=== PATIENT | female | born 1940 | race Caucasian/White ===

== ENCOUNTER 2017-04-12 06:01 | Inpatient (IN) | payer MEDICARE, OTHER ==
[~2017-04-12] VITALS: Ht 170.2 cm; Wt 55.3 kg
[~2017-04-12 06:01] MED LIST: ALEN70TA45 PO; AMLO1CAP2 PO; AZIT250T6 PO; BLOO-140 IN; CLON0.1T PO; COLC0.6T69 PO; DULO30CA51 PO; FENO200C PO; FURO40TA5 PO; GABA-534 PO; HYDR-4076 PO; IBUP-1482 PO; INSU100V7 SQ; LINA290C PO; LORA1TAB PO; METO-306 PO; OLME1TAB2 PO; OMEP40CA37 PO; OSEL75CA PO; SITA1TAB6 PO; [UNRECOGNIZED DRUG - CODE] PO
--- NOTE | 2017-04-12 06:10 | NUR ---
abhishekra fr home for c/o upper abd pain w/ N/V x today, constipation x 3 days, hx metastic bone Ca. AOX4, afebrile w/ resp even & unlabored, tachycardic w/ report continued abd pain, nausea, no active vomiting, placed on continuous pulse-ox w/ cardiac monitoring. pt son at bedside. Dr. Brooks at bedside for further eval.
--- NOTE | 2017-04-12 06:18 | NUR ---
CXR at bedside.
--- NOTE | 2017-04-12 06:20 | NUR ---
Labs drawn w/ BCx2 and sent. EKG at bedside.
[2017-04-12 06:33] LABS: BASOPHILS % (AUTO) 0.2 % (0.0-2.0); EOSINOPHILS # (AUTO) 0.1 /CMM (0.0-0.7); EOSINOPHILS % (AUTO) 0.6 % (0.0-6.0); HEMATOCRIT 29 % (33-45); HEMOGLOBIN 9.7 g/dL (11.5-14.8); LYMPHOCYTES # (AUTO) 0.6 /CMM (0.8-4.8); LYMPHOCYTES % (AUTO) 7.1 % (20.0-44.0); MEAN CORPUSCULAR HEMOGLOBIN 29 PG (26.0-33.0); MEAN CORPUSCULAR HGB CONC 34 g/dl (31.0-36.0); MEAN CORPUSCULAR VOLUME 86 fL (82-100); MONOCYTES # (AUTO) 0.4 /CMM (0.1-1.30); NEUTROPHILS # (AUTO) 7.6 /CMM (1.8-8.9); NEUTROPHILS % (AUTO) 87.1 % (43.0-81.0); PLATELET COUNT (AUTO) 323 /CMM (150-450); RDW COEFFICIENT OF VARIATION 22.4 (11.5-15.0); RED BLOOD CELL COUNT(AUTO) 3.32 MIL/uL (4.0-5.2); WHITE BLOOD COUNT (AUTO) 8.7 K/uL (4.3-11.0)
[2017-04-12] MEDS ORDERED: MORPHINE SULFATE INJ 10 MG/ML DISP.SYRIN ONE (06:47)
[2017-04-12] MEDS ORDERED: ONDANSETRON HCL/PF 4 MG/2 ML VIAL ONE (06:47)
[2017-04-12 06:50] LABS: ALANINE AMINOTRANSFERASE 13 U/L (12-78); ALBUMIN 2.6 g/dL (3.4-5.0); ALKALINE PHOSPHATASE 212 U/L (46-116); ASPARTATE AMINOTRANSFERASE 25 U/L (15-37); BILIRUBIN,DIRECT 0.1 mg/dL (0.0-0.2); BILIRUBIN,TOTAL 0.3 mg/dL (0.2-1.0); CALCIUM, SERUM 9.2 mg/dL (8.5-10.1); CARBON DIOXIDE 20 mmol/L (21-32); CHLORIDE 104 mmol/L (98-107); CREATININE 0.7 mg/dL (0.6-1.3); GLUCOSE 158 mg/dL (74-106); POTASSIUM 3.3 mmol/L (3.5-5.1); SODIUM SERUM 136 mmol/L (136-145); TOTAL PROTEIN, SERUM 6.7 g/dL (6.4-8.2); UREA NITROGEN, BLOOD 13 mg/dL (7-18)
[2017-04-12 06:54] LABS: TROPONIN I 0.066 ng/mL (0.00-0.056)
[2017-04-12] MEDS ORDERED: ONDANSETRON HCL/PF 4 MG/2 ML VIAL IVP ONE (07:00)
[2017-04-12] MEDS ORDERED: MORPHINE SULFATE INJ 2 MG/ML DISP.SYRIN IV ONE (07:00)
[2017-04-12] MEDS ORDERED: IV NS 0.9% 500 ML BAG IV ONE ×2 (07:00→10:30)
[2017-04-12 07:01] LABS: INR 1.01 (0.87-1.13); PROTHROMBIN TIME 10.5 SECS (9.5-12.7)
--- NOTE | 2017-04-12 07:26 | NUR ---
PT ON BED, AWAKE, VSS
[2017-04-12] MEDS ORDERED: CT SWABBABLE VALVE TRANS SET 1 EA INFUS.SET MC ONE (07:28)
[2017-04-12] MEDS ORDERED: IV NS 0.9% 250 ML IV ONE (07:28)
[2017-04-12] MEDS ORDERED: IOHEXOL-300 100 ML VIAL IV ONE (07:28)
--- NOTE | 2017-04-12 07:33 | NUR ---
PATIENT WAS TAKEN TO CT
--- NOTE | 2017-04-12 08:07 | NUR ---
URINE SAMPLE SENT TO LAB
[2017-04-12 08:44] LABS: APPEARANCE,URINE CLEAR (CLEAR); BILIRUBIN,URINE 1+ (NEGATIVE); BLOOD, URINE NEGATIVE Ery/uL (NEGATIVE); COLOR,URINE YELLOW (YELLOW); KETONES,URINE TRACE (NEGATIVE); LEUKOCYTE ESTERASE ,URINE 1+ (NEGATIVE); NITRITE, URINE NEGATIVE (NEGATIVE); PH,URINE 5.5 (5.0-8.0); PROTEIN,URINE 2+ mg/dl (NEGATIVE); UGLUCOSE NEGATIVE (NEGATIVE); UROBILINOGEN,URINE 0.2 EU/dL (0.2)
[2017-04-12 08:53] LABS: RBC,URINE 0-2 /HPF (0-2)
[2017-04-12 08:54] LABS: BACTERIA,URINE Few /HPF (None Seen); MUCUS,URINE Few /LPF (None Seen); URINE AMORPHOUS URATE Few /HPF (None Seen)
--- NOTE | 2017-04-12 10:45 | NUR ---
REPORT GIVEN TO KEEGAN DUFFY FOR DAVID TELE [phone]
--- NOTE | 2017-04-12 11:30 | NUR ---
CORPORATE QUALITY ASSURANCE MANAGER ADMISSION PATIENT RECEIVED FROM E.R. DEPARTMENT VIA [facility], PATIENT ABLE TO AMBULATE FROM [facility] TO BED, WITH STANDBY ASSIST, ACCOMPANIED BY SON, MEDICAL HX PROVIDED BY SON, PATIENT IS ALERT AND ORIENTED X3, FEELS LETHARGIC AND COMPLAINING OF ABDOMINAL PAIN. NO SOB NOTED. DR. MEIER PAGED FOR PAIN MEDICATIONS. NEEDS ATTENDED AND MET, CALL LIGHT WITHIN REACH, WILL CONTINUE TO MONITOR.
[2017-04-12] MEDS ORDERED: VALS160T2 PO (11:41)
[2017-04-12] MEDS ORDERED: FURO20TA4 PO (11:41)
[2017-04-12] MEDS ORDERED: MEGE400O PO (11:41)
[2017-04-12] MEDS ORDERED: PROC10TA PO (11:41)
[2017-04-12] MEDS ORDERED: ROSU20TA PO (11:41)
[2017-04-12] MEDS ORDERED: POTA-10 PO (11:41)
[2017-04-12] MEDS ORDERED: AMLO10TA2 PO (11:41)
[2017-04-12] MEDS ORDERED: CLON0.2T PO (11:41)
[2017-04-12] MEDS ORDERED: HYDR-4076 PO (11:41)
[2017-04-12] MEDS ORDERED: SERT50TA PO (11:41)
[2017-04-12] MEDS ORDERED: ONDA-26 PO (11:41)
[2017-04-12] MEDS ORDERED: CHOL500052 PO (11:41)
[2017-04-12] MEDS ORDERED: CLOT10TR MM (11:41)
[2017-04-12] MEDS ORDERED: ASPI-991 PO (11:41)
[2017-04-12] MEDS ORDERED: TICA90TA PO (11:42)
[2017-04-12] MEDS ORDERED: DICL100G3 TP (11:42)
[2017-04-12] MEDS ORDERED: BISA10SU8 RC (11:42)
[2017-04-12] MEDS ORDERED: ZOLP5TAB7 PO (11:42)
[2017-04-12] MEDS ORDERED: CARV12.52 PO (11:42)
[2017-04-12] MEDS ORDERED: IV NS 0.9% 1,000 ML IV PRN (11:58)
[2017-04-12 12:00] VITALS: BP 167/83
[2017-04-12] MEDS ORDERED: Z GUARD REMEDY 2 OZ OINT TP PRN (12:00)
[2017-04-12] MEDS ORDERED: ZOLPIDEM TARTRATE 5 MG TABLET PO PRN (12:00)
[2017-04-12] MEDS: HYDROMORPHONE INJ 2 MG/ML DISP.SYRIN IV PRN ×3 (12:30→19:55)
[2017-04-12] MEDS ORDERED: HYDR-4077 PO (14:33)
[2017-04-12] MEDS: POTASSIUM CL. PREMIX PERIPHER. 50 ML IV SCH ×4 (14:47→18:08)
[2017-04-12 16:00] VITALS: BP 146/91
--- NOTE | 2017-04-12 16:00 | NUR ---
PUBLIC SERVICE DIRECTOR NOTES PATIENT'S HEART RHYTHM SHOWS SINUS TACHYCARDIA, WITH HR OF 144. PATIENT COMPLAINING OF ABDOMINAL PAIN. DR MEIER MADE AWARE AND RECEIVED INSTRUCTION TO GIVE DILAUDID FOR PAIN. REMINDED HIM RE: MED RECON, PER MD, OK, KEEP HER NPO AT THIS TIME. WILL CONTINUE TO MONITOR.
--- NOTE | 2017-04-12 16:54 | NUR ---
LEAFLET DISTRIBUTOR NOTES PATIENT'S HEART RATE STILL SHOWS 140'S, PATIENT IS ASYMPTOMATIC, DENIES CHEST PAIN, NO SOB NOTED, CONTINUE ON IVF AND POTASSIUM REPLACEMENT. RELAYED TO SUPERVISOR PAPER MACHINE DR. GUEVARA, PER MD, NO NEW ORDER AT THIS TIME, JUST CONTINUE IVF AND POTASSIUM IV, AND CONTINUE TO MONITOR.
--- NOTE | 2017-04-12 18:59 | NUR ---
COAL OR ORE CONTROLLER NOTES PATIENT ALERT AND ORIENTED X3, NO CHANGE IN LOC, DENIES PAIN OR DISCOMFORT AT THIS TIME, PATIENT KEPT NPO AT THIS TIME, TELE MONITOR SHOWS SINUS TACHY AT 140, ASYMPTOMATIC, POTASSIUM REPLETED, IVF INFUSING AT 150ML/HR, ALL NEEDS ATTENDED, SAFETY MEASURES IN PLACED, CALL LIGHT WITHIN REACH, WILL ENDORSE TO TEACHER ASST FOR DAVID.
--- NOTE | 2017-04-12 19:10 | NUR ---
RN NOTES RECEIVED PT AWAKE, HOB ELEVATED, NO SOB, NOT IN DISTRESS, ON ROOM AIR AND TOLERATED WELL. PT ALERT AND ORIENTED X3, PT APPEARS ANXIOUS, COMPLAINS OF ABDOMINAL PAIN 6/10 AT THIS TIME. TELE MONITOR READS SINUS TACHYCARDIA WITH HEART RATE AT 147. RIGHT UPPER ARM PICC LINE INTACT WITH ONGOING IVF INFUSING WELL. KEPT COMFORTABLE AND ATTENDED. FALL PRECAUTION OBSERVED. FAMILY AT BEDSIDE, PLAN OF CARE DISCUSSED AND UPDATED. WILL CONTINUE TO MONITOR PT.
--- NOTE | 2017-04-12 19:55 | NUR ---
RN NOTES PT COMPLAINS OF 10/10 PAIN ON HER ABDOMEN, LOWER BACK AND BILATERAL LOWER LEG. DILAUDID 1MG GIVEN IV. WILL CONTINUE TO MONITOR PT.
[2017-04-12 20:00] VITALS: BP 180/92
--- NOTE | 2017-04-12 21:45 | NUR ---
RN NOTES PT ASLEEP, EASILY AROUSABLE, LOOKS COMFORTABLE IN BED. NO SIGNS OF DISCOMFORT NOTED. TELEMONITOR READS SINUS TACH WITH HEART RATE AT 143. WILL CONTINUE TO MONITOR PT.
[2017-04-12 22:00] VITALS: BP 166/91
--- NOTE | 2017-04-12 22:50 | NUR ---
RN NOTES PT AWAKE, ASSISTED TO COMMODE, PT URINATE WITHOUT DISCOMFORT AND ASSISTED BACK TO BED. 166/91 HR 147-150. PT GOT ANXIOUS WITH HER HIGH HEART RATE. JAMAAL VAZQUEZ NP MADE AWARE AND WILL COME TO SEE THE PT.
--- NOTE | 2017-04-12 23:05 | NUR ---
RN NOTES SEEN AND EXAMINED BY JAMAAL MERCHANDISER RETAIL REPRESENTATIVE, PT LOOKS ANXIOUS. HEART RATE AT 180 WITH ORDER TO DO EKG.
--- NOTE | 2017-04-12 23:20 | NUR ---
RN NOTES EKG DONE WHICH READS A. FIB WITH RVR AND HEART RATE AT 197. JAMAAL UX DESIGN LEAD AT BEDSIDE WITH ORDER TO GIVE ATIVAN 0.5 MG IV AND METOPROLOL 5 MG IV AND TO DECREASE THE RATE OF THE IVF TO 75 ML/HR. PT AWAKE, VERBAL, ANXIOUS AND COMPLAINING OF ABDOMINAL PAIN. VITAL SIGNS BP 166/92 O2SAT 97% RESPIRATION 19. WILL CONTINUE TO MONITOR PT.
[2017-04-12] MEDS ORDERED: LORAZEPAM INJ 2 MG/ML VIAL ONE (23:22)
--- NOTE | 2017-04-12 23:35 | NUR ---
RN NOTES ATIVAN 0.5 MG GIVEN IV. WILL CONTINUE TO MONITOR PT.
[2017-04-12] MEDS ORDERED: METOPROLOL TARTRATE INJ 5 MG/5 ML AMPUL ONE (23:37)
--- NOTE | 2017-04-12 23:40 | NUR ---
RN NOTES TELE MONITOR READS A.FIB. WITH HEART RATE AT 170. ORDERED, METOPROLOL 5 MG GIVEN SLOW IV BY JAMAAL INSURANCE VERIFY REP. WILL CONTINUE TO MONITOR PT.
[2017-04-13] VITALS: BP 109/74
[2017-04-13] MEDS ORDERED: METOPROLOL TARTRATE INJ 5 MG/5 ML AMPUL IVP ONE
[2017-04-13] MEDS: LORAZEPAM INJ 2 MG/ML VIAL IV PRN (00:01)
[2017-04-13] MEDS: HYDROMORPHONE INJ 2 MG/ML DISP.SYRIN IV PRN ×5 (00:16→20:19)
--- NOTE | 2017-04-13 00:16 | NUR ---
RN NOTES PT COMPLAINING OF ABDOMINAL PAIN 03/21, DILAUDID 1 MG GIVEN SLOW IV. WILL CONTINUE TO MONITOR PT. JAMAAL SEAFOOD HARVESTER AT BEDSIDE, MONITORING THE PT.
--- NOTE | 2017-04-13 01:00 | NUR ---
RN NOTES VITAL SIGNS CHECKED BP 109/74, HR 166, RR 18, O2SAT 97%. PT ASLEEP EASILY AROUSABLE PAIN AT TOLERABLE LEVEL AT THIS TIME. JAMAAL SANITATION TECHNICIAN AT BEDSIDE, WILL CONTINUE TO MONITOR.
[2017-04-13] MEDS ORDERED: DILTIAZEM HCL 25 MG IV ONE (01:20)
--- NOTE | 2017-04-13 01:28 | NUR ---
RN NOTES HEART RATE 176. JAMAAL CASE MAKER AT BEDSIDE, CARDIZEM 10 MG SLOW IV GIVEN. WILL CONTINUE TO MONITOR PT.
[2017-04-13] MEDS ORDERED: DILTIAZEM HCL 50 MG IV IV ONE ×3 (01:30→03:00)
--- NOTE | 2017-04-13 01:51 | NUR ---
RN NOTES SECOND DOSE OF CARDIZEM 10 MG SLOW IV GIVEN BY JAMAAL PRINTING SPECIALIST FOR HEART RATE OF 146.WILL CONTINUE TO MONITOR.
--- NOTE | 2017-04-13 01:55 | NUR ---
RN NOTES PT ASLEEP, EASILY AROUSABLE, DENIES PAIN AND DISCOMFORT AT THIS TIME. BP 133/82 TELE MONITOR READS SINUS RHYTHM WITH HEART RATE AT 114. JAMAAL SPINNING DOFFER AT BEDSIDE WITH ORDER OF STAT BMP AND MG. WILL CONTINUE TO MONITOR PT.
[2017-04-13] MEDS ORDERED: DILTIAZEM HCL IV 125 MG in IV D5W 100 ML IV PRN (02:00)
[2017-04-13 02:23] LABS: CALCIUM, SERUM 8.2 mg/dL (8.5-10.1); CARBON DIOXIDE 18 mmol/L (21-32); CHLORIDE 105 mmol/L (98-107); CREATININE 0.9 mg/dL (0.6-1.3); GLUCOSE 149 mg/dL (74-106); MAGNESIUM 1.5 mg/dL (1.8-2.4); POTASSIUM 4.2 mmol/L (3.5-5.1); SODIUM SERUM 137 mmol/L (136-145); UREA NITROGEN, BLOOD 15 mg/dL (7-18)
--- NOTE | 2017-04-13 02:45 | NUR ---
RN NOTES BMP RESULT RECEIVED AND MG LEVEL AT 1.5, HEART RATE AT 120 BP 133/92, RR 18, O2 SAT 97% JAMAAL ASSEMBLER CONVERTIBLE TOP MADE AWARE. NEW ORDER RECEIVED GIVE CARDIZEM 5 MG IV AND MAGNESIUM 1 GM IV. WILL CONTINUE TO MONITOR PT.
[2017-04-13] MEDS ORDERED: Magnesium 1GM/D5W 100ML PREMIX 100 ML IV ONE (02:49)
[2017-04-13] MEDS ORDERED: Magnesium 1GM/D5W 100ML PREMIX PIGGYBACK IV ONE (03:00)
[2017-04-13] MEDS: IV NS 0.9% 1,000 ML IV PRN ×2 (03:01→18:41)
[2017-04-13 04:00] VITALS: BP 157/86
--- NOTE | 2017-04-13 04:38 | NUR ---
RN NOTES VITAL SIGNS CHECKED BP 157/86, HR 120, RR 18, TEMP 97.7, O2 SAT 97%. PT AWAKE, ALERT AND VERBAL. PAIN AT TOLERABLE LEVEL AT THIS TIME. WILL CONTINUE TO MONITOR PT.
[2017-04-13 07:02] VITALS: BP 157/87
[2017-04-13 07:08] LABS: BASOPHILS % (AUTO) 0.3 % (0.0-2.0); HEMATOCRIT 28 % (33-45); HEMOGLOBIN 9.4 g/dL (11.5-14.8); LYMPHOCYTES % (AUTO) 9.6 % (20.0-44.0); MEAN CORPUSCULAR HEMOGLOBIN 29 PG (26.0-33.0); MEAN CORPUSCULAR HGB CONC 34 g/dl (31.0-36.0); MEAN CORPUSCULAR VOLUME 87 fL (82-100); MONOCYTES % (AUTO) 9.6 % (2.0-12.0); NEUTROPHILS # (AUTO) 8.2 /CMM (1.8-8.9); NEUTROPHILS % (AUTO) 80.5 % (43.0-81.0); PLATELET COUNT (AUTO) 288 /CMM (150-450); RDW COEFFICIENT OF VARIATION 22.3 (11.5-15.0); RED BLOOD CELL COUNT(AUTO) 3.21 MIL/uL (4.0-5.2); WHITE BLOOD COUNT (AUTO) 10.2 K/uL (4.3-11.0)
--- NOTE | 2017-04-13 07:09 | NUR ---
RN NOTES PT AWAKE, ALERT AND VERBAL. HOB ELEVATED, NO SIGNS OF DISTRESS NOTED. TELEMONITOR READS SINUS RHYTHM AT 118. KEPT PT ON NPO, NO EPISODE OF NAUSEA AND VOMITING. DILAUDID 1MG GIVEN SLOW IV, PT COMPLAINS OF ABDOMINAL AND LOWER BACK PAIN. FALL PRECAUTION OBSERVED. DAUGHTER AT BEDSIDE, PLAN OF CARE DISCUSSED AND UPDATED. ENDORSED TO MORNING RN FOR CONTINUITY OF CARE.
[2017-04-13 07:21] LABS: CHOLESTEROL 118 mg/dL (<200); HDL CHOLESTEROL 19 mg/dL (40-60); LDL 75 mg/dL (0-99); TRIGLYCERIDES 124 mg/dL (30-150)
[2017-04-13 07:24] LABS: ALANINE AMINOTRANSFERASE 12 U/L (12-78); ALBUMIN 2.3 g/dL (3.4-5.0); ALKALINE PHOSPHATASE 224 U/L (46-116); ASPARTATE AMINOTRANSFERASE 29 U/L (15-37); BILIRUBIN,TOTAL 0.2 mg/dL (0.2-1.0); CALCIUM, SERUM 8.5 mg/dL (8.5-10.1); CARBON DIOXIDE 19 mmol/L (21-32); CHLORIDE 106 mmol/L (98-107); CREATININE 0.9 mg/dL (0.6-1.3); GLUCOSE 133 mg/dL (74-106); PHOSPHORUS 4.2 mg/dL (2.5-4.9); POTASSIUM 4.4 mmol/L (3.5-5.1); SODIUM SERUM 137 mmol/L (136-145); TOTAL PROTEIN, SERUM 6.5 g/dL (6.4-8.2); UREA NITROGEN, BLOOD 15 mg/dL (7-18)
--- NOTE | 2017-04-13 07:40 | NUR ---
RN OPEN NOTES RECEIVED REPORT FROM CUT OFF SAW SET UP OPERATOR NURSE. PATIENT IS IN BED, AWAKE, ALERT AND ORIENTED TO NAME, PLACE AND TIME. HEART RATE ELEVATED 118 - 129, WILL F/U WITH MD. WILL CONTINUE TO ASSESS AND MONITOR PATIENT THROUGH OUT MY SHIFT
[2017-04-13 08:00] VITALS: BP 157/87
[2017-04-13 08:06] LABS: LIPASE 4359 U/L (73-393)
--- NOTE | 2017-04-13 10:05 | NUR ---
DR MEIER AT BEDSIDE
[2017-04-13] MEDS ORDERED: BISACODYL SUPP (10 MG) 10 MG/SUPP.RECT SUPP.RECT RC PRN ×2 (10:30)
--- NOTE | 2017-04-13 10:30 | NUR ---
DR MEIER RECONCILED ALL HOME MEDS. WILL ADMINISTER WHEN PHARMACY VERIFY ALL MEDS
[2017-04-13] MEDS: hydrALAZINE HCL 50 MG TABLET PO SCH ×3 (11:14→16:13)
[2017-04-13] MEDS: SERTRALINE HCL 50 MG TABLET PO SCH (11:14)
[2017-04-13] MEDS: AMLODIPINE BESYLATE 10 MG TABLET PO SCH (11:15)
--- NOTE | 2017-04-13 11:15 | NUR ---
ALL MORNING MEDS ADMINISTERED AT 11:11
--- NOTE | 2017-04-13 11:52 | NUR ---
1300 HYDRALAZINE NOT GIVEN DUE TO ADMINISTERED 0900 DOSE AT 11:11
[2017-04-13] MEDS: TICAGRELOR 90 MG TABLET PO SCH ×2 (12:13→16:13)
[2017-04-13] MEDS: METOPROLOL TARTRATE 50 MG TABLET PO SCH ×2 (12:14→17:41)
[2017-04-13] MEDS: ONDANSETRON HCL/PF 4 MG/2 ML VIAL IVP PRN (15:36)
[2017-04-13 16:00] VITALS: BP 158/86
--- NOTE | 2017-04-13 18:30 | NUR ---
RN CLOSING NOTES PATIENT IS IN BED, ALERT AND ORIENTED TO NAME ONLY, PLACE AND TIME. INDONESIAN SPEAKER. TELE MONITORING SINUS TACHY WITH PVCs. NO SIGNS AND SYMPTOMS OF DISTRESS. LAST DILAUDID ADMINISTERED AT 1610. ALL NURSING CARE ANTICIPATED AND ATTENDED. PICC LINE ON THE UPPER RIGHT ARM, CURRENTLY INFUSING NS AT 75ML/HR; SKIN IS INTACT. BED IN LOW POSITION, LOCKED AND TWO SIDE RAILS ARE UP. CALL LIGHTS WITHIN REACH. WILL ENDORSE TO CERTIFIED PESTICIDE APPLICATOR RN FOR DAVID.
--- NOTE | 2017-04-13 19:20 | NUR ---
IV FLUID HELD DUE TO PATIENT COMPLAINING ON SOB. PATIENT IS ABLE TO DRINK FLUID PO. PATIENT SAID THAT SHE FEELS BETTER WITHOUT THE FLUID. NIGHT RN MADE AWARE
--- NOTE | 2017-04-13 19:40 | NUR ---
RN OPENING NOTES RECEIVED REPORT FROM JIA MCBRIDE RN. FOUND Pt AWAKE, RESTING IN BED. FAMILY VISITING AT BEDSIDE. Pt IS A/OX3, GRENADIAN SPEAKING, UNDERSTANDS SOME TURKMEN. IV ACCESS ON CYNTHIA PICCLINE. OFF OF IVF NS D/T Pt C/O SOB. Pt STATES THAT SHE FEELS BETTER NOW THAT THE IVF IS OFF. SAFETY MEASURES IN PLACE. BED LOW, LOCKED, HOB ELEVATED, SIDE RAILS UP, CALL LIGHT AND BEDSIDE TABLE WITHIN REACH. WILL CONTINUE TO MONITOR Pt THROUGHOUT THE NIGHT FOR SAFETY.
[2017-04-13 20:00] VITALS: BP 143/72
[2017-04-14] VITALS (7 sets, daily range): BP systolic 107–163; BP diastolic 53–83
[2017-04-14] MEDS: HYDROMORPHONE INJ 2 MG/ML DISP.SYRIN IV PRN ×5 (00:12→23:29)
[2017-04-14] MEDS: METOPROLOL TARTRATE 50 MG TABLET PO SCH ×5 (00:12→23:19)
--- NOTE | 2017-04-14 01:00 | NUR ---
RN NOTES SPOKE WITH CAYETANO HINTON ON THE PHONE. INFORMED INVESTMENT MANAGER THAT Pt IS STILL C/O SEVERE PAIN AND WANTS MORE PAIN MED EVEN THOUGH Pt WAS GIVEN DILAUDID 1MG AT 0010. JAMAAL ORDERED NORCO-5/Q4H PRN PAIN FOR BREAK THROUGH PAIN.
[2017-04-14] MEDS: LORAZEPAM INJ 2 MG/ML VIAL IV PRN (01:15)
[2017-04-14] MEDS ORDERED: HYDROCODONE/APAP 5/325MG 1 EACH TABLET PO PRN (01:30)
[2017-04-14 06:15] LABS: BASOPHILS % (AUTO) 0.2 % (0.0-2.0); EOSINOPHILS % (AUTO) 0.3 % (0.0-6.0); HEMATOCRIT 29 % (33-45); HEMOGLOBIN 9.5 g/dL (11.5-14.8); LYMPHOCYTES # (AUTO) 0.7 /CMM (0.8-4.8); LYMPHOCYTES % (AUTO) 5.3 % (20.0-44.0); MEAN CORPUSCULAR HEMOGLOBIN 29 PG (26.0-33.0); MEAN CORPUSCULAR HGB CONC 33 g/dl (31.0-36.0); MEAN CORPUSCULAR VOLUME 89 fL (82-100); MONOCYTES % (AUTO) 21.6 % (2.0-12.0); NEUTROPHILS % (AUTO) 72.6 % (43.0-81.0); PLATELET COUNT (AUTO) 297 /CMM (150-450); RDW COEFFICIENT OF VARIATION 22.2 (11.5-15.0); RED BLOOD CELL COUNT(AUTO) 3.22 MIL/uL (4.0-5.2); WHITE BLOOD COUNT (AUTO) 13.8 K/uL (4.3-11.0)
--- NOTE | 2017-04-14 06:44 | NUR ---
RN CLOSING NOTES NO SIGNIFICANT CHANGES IN Pt's CONDITION. NO S/S OF ACUTE DISTRESS OR SEVERE SOB NOTED DURING THE NIGHT. ALL NEEDS MET AND ATTENDED TO. SAFETY MEASURES IN PLACE. WILL ENDORSE TO DAYSHIFT RN FOR Pt's DAVID. Addendum: 04/14/17 at 0649 by JAY GREEN RN TELE READING SR/ST [phone]
[2017-04-14 06:49] LABS: ALANINE AMINOTRANSFERASE 13 U/L (12-78); ALBUMIN 2.3 g/dL (3.4-5.0); ALKALINE PHOSPHATASE 207 U/L (46-116); ASPARTATE AMINOTRANSFERASE 24 U/L (15-37); BILIRUBIN,TOTAL 0.5 mg/dL (0.2-1.0); CALCIUM, SERUM 9.1 mg/dL (8.5-10.1); CARBON DIOXIDE 19 mmol/L (21-32); CHLORIDE 108 mmol/L (98-107); CREATININE 0.7 mg/dL (0.6-1.3); GLUCOSE 144 mg/dL (74-106); MAGNESIUM 1.9 mg/dL (1.8-2.4); PHOSPHORUS 3.4 mg/dL (2.5-4.9); POTASSIUM 4.1 mmol/L (3.5-5.1); SODIUM SERUM 141 mmol/L (136-145); TOTAL PROTEIN, SERUM 6.5 g/dL (6.4-8.2); UREA NITROGEN, BLOOD 16 mg/dL (7-18)
[2017-04-14 07:01] LABS: TROPONIN I 1.801 ng/mL (0.00-0.056)
[2017-04-14 07:48] LABS: LYMPHOCYTES % (MANUAL) 2 % (16-48); MONOCYTES % (MANUAL) 5 % (0-11.0); NEUTROPHILS % (MANUAL) 93 (42-76)
--- NOTE | 2017-04-14 08:20 | NUR ---
RN NOTES RECEIVED PATIENT IN THE ROOM, A/O X3, NO RESPIRATORY DISTRESS, HR- 101, PATIENT C/O PAIN ;LOWER BACK PAIN 9/10 PER PAIN SLIDING SCALE, ADMINISTERED DILAUDID 1 MG IV PUSH, PRESCRIBED, ALSO ADMINISTERED SCHEDULED MEDICATION, V/S STABLE, NEEDS ATTENDED AND ANTICIPATED, ENCOURAGED TO EXPRESS FEELINGS AND CONCERNS. CALL LIGHT WITHIN TO REACH, SAFETY PRECAUTION MAINTAINED ALL THE TIME.
[2017-04-14] MEDS: VALSARTAN 80 MG TABLET PO SCH ×2 (08:22→17:25)
[2017-04-14] MEDS: hydrALAZINE HCL 50 MG TABLET PO SCH ×4 (08:23→17:25)
[2017-04-14] MEDS: ASPIRIN EC 81 MG TABLET.DR PO SCH (08:24)
[2017-04-14] MEDS: AMLODIPINE BESYLATE 10 MG TABLET PO SCH (08:24)
[2017-04-14] MEDS: SERTRALINE HCL 50 MG TABLET PO SCH (08:24)
[2017-04-14] MEDS: TICAGRELOR 90 MG TABLET PO SCH ×2 (08:24→17:25)
--- NOTE | 2017-04-14 09:00 | NUR ---
rn notes patient resting comfortable in the bed at this time, medication were administered for pain effective, no respiratory distress, Apresoline 50 mg administered 822. pharmacy notified because md increase dosage. no acute distress, call [facility] within to reach, safety precaution maintained all the time.
[2017-04-14] MEDS: NITROGLYCERIN 30 GM TUBE TP SCH ×2 (10:53→21:12)
--- NOTE | 2017-04-14 12:00 | NUR ---
RN NOTES PATIENT RESTING IN THE BED AT THIS TIME, NO RESPIRATORY DISTRESS, NO C/O PAIN, BUT POOR EATER. ENCOURAGED TO INCREASE FLUID INTAKE. NEEDS ATTENDED AND ANTICIPATED. CALL JOHANSEN WITHIN TO REACH, SAFETY PRECAUTION MAINTAINED ALL THE TIME.
--- NOTE | 2017-04-14 17:00 | NUR ---
RN NOTES PATIENT IN THE BED, NO ACUTE DISTRESS, SCHEDULED MEDICATION ADMINISTERED, V/S TAKEN STABLE, NO ACUTE DISTRESS, STABLE AT THIS TIME, REFUSED PAIN MEDICATION. SAFETY PRECAUTION MAINTAINED ALL THE TIME.
--- NOTE | 2017-04-14 19:00 | NUR ---
MS RN OPENING NOTES PT IN BED RESTING, PT A/O X 2-3, IN STABLE CONDITION. TOLERATING ROOM AIR 100% BREATHING EVEN AND UNLABORED, SAFETY MEASURES IN PLACE, BED LOCKED AND IN LOWEST POSITION, CALL LIGHT IN REACH. WILL CONTINUE TO MONITOR.
--- NOTE | 2017-04-14 19:00 | NUR ---
RN JENNY ADMINISTERED PAIN MEDICATION PER PATIENT REQUEST, V/S TAKEN BP- 122/62, P-94, ENCOURAGED TO INCREASE FLUID INTAKE, AND EAT DINNER, BUT STATE "I DO NOT HAVE A APPETITE AT THIS TIME". PATIENT USING BED SIDE COMMODE. NEEDS ATTENDED AND ANTICIPATED. ENDORSED ONCOMING NURSE FOR CONTINUATION OF CARE.
[2017-04-14] MEDS: ONDANSETRON HCL/PF 4 MG/2 ML VIAL IVP PRN (19:50)
[2017-04-14] MEDS: IV NS 0.9% 1,000 ML IV PRN (21:09)
[2017-04-15] VITALS (8 sets, daily range): BP systolic 122–159; BP diastolic 59–79
[2017-04-15] MEDS: HYDROMORPHONE INJ 2 MG/ML DISP.SYRIN IV PRN (03:39)
[2017-04-15] MEDS: METOPROLOL TARTRATE 50 MG TABLET PO SCH ×4 (05:09→23:36)
--- NOTE | 2017-04-15 06:38 | NUR ---
MS RN CLOSING NOTES PATIENT COMFORTABLY ASLEEP AND EASILY AWAKEN, HEAD OF BED ELEVATED FOR BETTER LUNG EXPANSION, PT NOW PUT ON 2LPM VIA NC 02 SAT 97% NO COMPLAINS OF PAIN AT THIS TIME. RESPIRATIONS EVEN AND UNLABORED. NO S/S OF ACUTE DISTRESS, NO SOB, SKIN WARM AND DRY TO TOUCH, AFEBRILE, NURSING CARE RENDERED, NEEDS ATTENDED AND ANTICIPATED, KEPT CLEAN AND DRY AND COMFORTABLE. GOOD SKIN CARE PROVIDED. ALL DUE MEDS WAS GIVEN TOLERATED. FREQUENT VISUAL CHECK DONE FOR SAFETY EVERY 2 HOURS. NO NAUSEA NO VOMITING AT THIS TIME. SAFE HAZARD FREE ENVIRONMENT PROVIDED. CALL LIGHT WITHIN EASY TO REACH, ON LOW BED AT ALL TIMES TO ENSURE SAFETY, WILL ENDORSE TO THE NEXT SHIFT CONTINUE PLAN OF CARE.
--- NOTE | 2017-04-15 07:05 | NUR ---
RN OPEN NOTES RECEIVED REPORT FROM DINING ROOM SUPERVISOR NURSE. PATIENT IS IN BED, ALERT AND ORIENTED TO NAME, PLACE AND TIME. GUYANESE SPEAKER. NO SIGNS AND SYMPTOMS OF DISTRESS. DENIED PAIN. BED IN LOW POSITION, LOCKED AND 2 SIDE RAILS ARE UP. CALL LIGHT WITHIN REACH. WILL CONTINUE TO MONITOR AND ASSESS PATIENT THROUGH OUT MY SHIFT
--- NOTE | 2017-04-15 07:30 | NUR ---
DR GUEVARA AT BEDSIDE
[2017-04-15 07:52] LABS: BASOPHILS # (AUTO) 0.1 /CMM (0.0-0.2); BASOPHILS % (AUTO) 0.5 % (0.0-2.0); EOSINOPHILS % (AUTO) 0.1 % (0.0-6.0); HEMATOCRIT 27 % (33-45); HEMOGLOBIN 9.1 g/dL (11.5-14.8); LYMPHOCYTES # (AUTO) 0.6 /CMM (0.8-4.8); LYMPHOCYTES % (AUTO) 4.4 % (20.0-44.0); MEAN CORPUSCULAR HEMOGLOBIN 29 PG (26.0-33.0); MEAN CORPUSCULAR HGB CONC 33 g/dl (31.0-36.0); MEAN CORPUSCULAR VOLUME 87 fL (82-100); MONOCYTES % (AUTO) 7.3 % (2.0-12.0); NEUTROPHILS # (AUTO) 11.8 /CMM (1.8-8.9); NEUTROPHILS % (AUTO) 87.7 % (43.0-81.0); PLATELET COUNT (AUTO) 341 /CMM (150-450); RDW COEFFICIENT OF VARIATION 21.9 (11.5-15.0); RED BLOOD CELL COUNT(AUTO) 3.16 MIL/uL (4.0-5.2); WHITE BLOOD COUNT (AUTO) 13.5 K/uL (4.3-11.0)
[2017-04-15 08:14] LABS: CALCIUM, SERUM 9.2 mg/dL (8.5-10.1); CARBON DIOXIDE 18 mmol/L (21-32); CHLORIDE 107 mmol/L (98-107); CREATININE 0.7 mg/dL (0.6-1.3); GLUCOSE 156 mg/dL (74-106); POTASSIUM 4.2 mmol/L (3.5-5.1); SODIUM SERUM 140 mmol/L (136-145); UREA NITROGEN, BLOOD 18 mg/dL (7-18)
[2017-04-15 08:18] LABS: ALANINE AMINOTRANSFERASE 13 U/L (12-78); ALBUMIN 2.1 g/dL (3.4-5.0); ALKALINE PHOSPHATASE 174 U/L (46-116); ASPARTATE AMINOTRANSFERASE 19 U/L (15-37); BILIRUBIN,TOTAL 0.6 mg/dL (0.2-1.0); MAGNESIUM 1.8 mg/dL (1.8-2.4); PHOSPHORUS 3.3 mg/dL (2.5-4.9); TOTAL PROTEIN, SERUM 6.4 g/dL (6.4-8.2)
[2017-04-15] MEDS: TICAGRELOR 90 MG TABLET PO SCH ×2 (08:30→16:28)
[2017-04-15] MEDS: NITROGLYCERIN 30 GM TUBE TP SCH (08:30)
[2017-04-15] MEDS: ASPIRIN EC 81 MG TABLET.DR PO SCH (08:30)
[2017-04-15] MEDS: hydrALAZINE HCL 50 MG TABLET PO SCH ×3 (08:30→16:28)
[2017-04-15] MEDS: VALSARTAN 80 MG TABLET PO SCH ×2 (08:31→16:28)
[2017-04-15] MEDS: AMLODIPINE BESYLATE 10 MG TABLET PO SCH (08:31)
[2017-04-15] MEDS: SERTRALINE HCL 50 MG TABLET PO SCH (08:31)
--- NOTE | 2017-04-15 09:33 | NUR ---
DR MEIER AT BEDSIDE
[2017-04-15] MEDS ORDERED: POLYETHYLENE GLYCOL 3350 17 GM POWD.PACK PO PRN (10:00)
[2017-04-15] MEDS: ONDANSETRON HCL/PF 4 MG/2 ML VIAL IVP PRN (11:31)
--- NOTE | 2017-04-15 13:41 | NUR ---
LAB CALLED TO REPORT CRITICAL VALUE OF TROPONIN 0.696 TROPONIN LEVEL IS TRENDING DOWN, NO NEED TO CONTACT
[2017-04-15] MEDS: ACETAMINOPHEN 325 MG TABLET PO PRN (14:21)
--- NOTE | 2017-04-15 18:49 | NUR ---
RN CLOSING NOTES PATIENT IS IN BED. ALERT AND ORIENTED TO NAME, PLACE AND TIME. HONDURAN SPEAKER. PERIOD OF CONFUSION. NO SIGNS AND SYMPTOMS OF DISTRESS. DENIED PAIN. BED IN LOW POSITION, LOCKED AND TWO SIDE RAILS ARE UP. CALL LIGHT WITHIN REACH. IV SITE IN INTACT AND PATENT. ALL NURSING CARE ANTICIPATED AND ATTENDED FOR. WILL ENDORSE TO SUPPLIER ENGINEER NURSE FOR DAVID.
--- NOTE | 2017-04-15 19:00 | NUR ---
MS RN OPENING NOTES PT IN BED RESTING, PT A/O X 3, NO S/S OF DISTRESS NOTED. BREATHING EVEN AND UNLABORED, SAFETY MEASURES IN PLACE, BED LOCKED AND IN LOWEST POSITION, CALL LIGHT IN REACH. WILL CONTINUE TO MONITOR.
[2017-04-15] MEDS ORDERED: HYDROCODONE/APAP 10/325MG 1 EA TABLET ONE (20:47)
[2017-04-15] MEDS: HYDROCODONE/APAP 10/325MG 1 EA TABLET PO PRN (20:52)
[2017-04-15] MEDS: LORAZEPAM INJ 2 MG/ML VIAL IV PRN (21:40)
[2017-04-16] MEDS ORDERED: HYDROCODONE/APAP 10/325MG 1 EA TABLET ONE (02:21)
[2017-04-16] MEDS: HYDROCODONE/APAP 10/325MG 1 EA TABLET PO PRN ×2 (02:54→09:13)
[2017-04-16] MEDS: METOPROLOL TARTRATE 50 MG TABLET PO SCH ×3 (05:27→18:55)
--- NOTE | 2017-04-16 06:26 | NUR ---
MS RN CLOSING NOTES ASLEEP AND EASILY AWAKEN. HEAD OF BED ELEVATED FOR BETTER LUNG EXPANSION, TOLERATING ROOM AIR 02 SAT 98% RESPIRATIONS EVEN AND UNLABORED. IN STABLE CONDITION NO S/S OF ACUTE DISTRESS, NO COMPLAINS OF PAIN AT THIS TIME. AFEBRILE, NURSING CARE RENDERED, NEEDS ATTENDED AND ANTICIPATED, KEPT CLEAN AND DRY AND COMFORTABLE. GOOD SKIN CARE PROVIDED. FREQUENT VISUAL CHECK DONE FOR SAFETY EVERY 2 HOURS. SAFE HAZARD FREE ENVIRONMENT PROVIDED. CALL LIGHT WITHIN EASY TO REACH, ON LOW BED AT ALL TIMES TO ENSURE SAFETY, WILL ENDORSE TO THE NEXT SHIFT CONTINUE PLAN OF CARE.
[2017-04-16 07:36] LABS: BASOPHILS % (AUTO) 0.3 % (0.0-2.0); HEMATOCRIT 30 % (33-45); HEMOGLOBIN 9.9 g/dL (11.5-14.8); LYMPHOCYTES # (AUTO) 0.8 /CMM (0.8-4.8); MEAN CORPUSCULAR HEMOGLOBIN 29 PG (26.0-33.0); MEAN CORPUSCULAR HGB CONC 33 g/dl (31.0-36.0); MEAN CORPUSCULAR VOLUME 87 fL (82-100); MONOCYTES # (AUTO) 0.7 /CMM (0.1-1.30); MONOCYTES % (AUTO) 5.2 % (2.0-12.0); NEUTROPHILS # (AUTO) 11.3 /CMM (1.8-8.9); NEUTROPHILS % (AUTO) 88.5 % (43.0-81.0); PLATELET COUNT (AUTO) 379 /CMM (150-450); RDW COEFFICIENT OF VARIATION 21.9 (11.5-15.0); RED BLOOD CELL COUNT(AUTO) 3.41 MIL/uL (4.0-5.2); WHITE BLOOD COUNT (AUTO) 12.7 K/uL (4.3-11.0)
[2017-04-16 07:54] LABS: ALANINE AMINOTRANSFERASE 10 U/L (12-78); ALBUMIN 2.1 g/dL (3.4-5.0); ALKALINE PHOSPHATASE 161 U/L (46-116); ASPARTATE AMINOTRANSFERASE 30 U/L (15-37); BILIRUBIN,TOTAL 0.5 mg/dL (0.2-1.0); CALCIUM, SERUM 9.5 mg/dL (8.5-10.1); CARBON DIOXIDE 20 mmol/L (21-32); CHLORIDE 103 mmol/L (98-107); CREATININE 0.7 mg/dL (0.6-1.3); GLUCOSE 168 mg/dL (74-106); MAGNESIUM 1.7 mg/dL (1.8-2.4); PHOSPHORUS 2.7 mg/dL (2.5-4.9); POTASSIUM 3.9 mmol/L (3.5-5.1); SODIUM SERUM 136 mmol/L (136-145); TOTAL PROTEIN, SERUM 6.5 g/dL (6.4-8.2); UREA NITROGEN, BLOOD 15 mg/dL (7-18)
[2017-04-16 08:00] VITALS: BP 152/67
--- NOTE | 2017-04-16 08:00 | NUR ---
RN NOTES RECEIVED PATIENT IN THE ROOM, A/O X3 SITTING IN THE CHAIR, PATIENT HAS NO RESPIRATORY DISTRESS, ON O2 -2L NC, C/O PAIN AT THIS TIME GENERALIZED, V/S TAKE, PICC LINE ON RIGHT UPPER ARM INTACT, SEEN BY DR MEIER, PATIENT FOCUSED GOING HOME, CALL JOHANSEN WITHIN TO REACH, SAFETY PRECAUTION MAINTAINED ALL THE TIME.
[2017-04-16 08:06] LABS: TROPONIN I 0.577 ng/mL (0.00-0.056)
--- NOTE | 2017-04-16 08:10 | NUR ---
RN NOTES FOUND PATIENT IN THE FLOOR, ASSIST BACK TO THE BED. V/S TAKEN BP -161/77, P-98, R-20, O2-98 NC 2L, SKIN ASSESSMENT DONE, NO INJURY, NO DISCOLORATION, PT C/O PAIN BACK OF HEAD, LEFT UPPER LEG, AND LOWER BACK, SEE BY Dr. MEIER, AND GET ORDER CT-SCAN OF HEAD, AND HIP. NOTIFIED CHARGE NURSE, MEASURING CLERK, AND FAMILY . CALL LIGHT WITH IN THE REACH, BED ALARM ON, SIDE RAILS UP X3. CONTINUED MONITORING CLOSELY.
[2017-04-16] MEDS: LEVOFLOXACIN (500MG) 500 MG TABLET PO SCH (08:35)
[2017-04-16] MEDS: HYDROCHLOROTHIAZIDE 25 MG TABLET PO SCH (08:36)
[2017-04-16] MEDS: ISOSORBIDE DINITRATE (20MG) 20 MG TABLET PO SCH ×2 (08:36→17:16)
[2017-04-16] MEDS: SERTRALINE HCL 50 MG TABLET PO SCH (08:37)
[2017-04-16] MEDS: VALSARTAN 80 MG TABLET PO SCH ×2 (08:37→17:15)
[2017-04-16] MEDS: TICAGRELOR 90 MG TABLET PO SCH ×2 (08:37→17:17)
[2017-04-16] MEDS: hydrALAZINE HCL 50 MG TABLET PO SCH ×3 (08:37→17:15)
[2017-04-16] MEDS: ASPIRIN EC 81 MG TABLET.DR PO SCH (08:37)
[2017-04-16] MEDS: AMLODIPINE BESYLATE 10 MG TABLET PO SCH (09:13)
--- NOTE | 2017-04-16 09:13 | NUR ---
RN NOTES ADMINISTERED NARCO 10/325 MG PO PRN FOR GENERALIZED PAIN 01/19, PER PATIENT REQUEST, V/S TAKEN BP 108/ 58, P- 112, ENCOURAGED TO INCREASE FLUID INTAKE, CALL JOHANSEN WITHIN TO REACH, BED ALARM ON, SAFETY PRECAUTION MAINTAINED ALL THE TIME.
[2017-04-16] MEDS: Magnesium 1GM/D5W 100ML PREMIX 100 ML IV SCH ×2 (09:47→11:53)
--- NOTE | 2017-04-16 10:30 | NUR ---
RN NOTES MEDICATION WERE ADMINISTERED FOR PAIN EFFECTIVE, INCIDENT REPORT COMPLETED. PATIENT RESTING AT THIS TIME, NO RESPIRATORY DISTRESS, CALL JOHANSEN WITHIN TO REACH, INFUSING IV RIGHT UPPER PICK LINE 75 ML/HR INTACT, BED ALARM ON, SAFETY PRECAUTION MAINTAINED ALL THE TIME.
--- NOTE | 2017-04-16 12:30 | NUR ---
RN NOTES PATIENT RESTING IN THE BED AT THIS TIME, NO ACUTE DISTRESS, NO RESPIRATORY DISTRESS, IV PICC LINE ON LEFT UPPER LINE INTACT, CALL LIGHT WITHIN TO REACH, SAFETY PRECAUTION MAINTAINED ALL THE TIME. FAMILY NEXT TO THE BED.PATIENT HAS A POOR APPETITE. CONTINUED MONITORING.
[2017-04-16] MEDS: ACETAMINOPHEN 325 MG TABLET PO PRN (14:25)
--- NOTE | 2017-04-16 14:25 | NUR ---
RN NOTES PATIENT IN THE BED, FAMILY NEXT TO THE BED, PT ON O2--2L NC, CT-SCAN OF HEAD DONE, ADMINISTERED TYLENOL 650 MG PO PRN PER PATENT REQUEST FOR PAIN 10/19, V/S TAKEN BP 124/ 54, P-114, MAKE PATIENT COMFORTABLE IN THE BED, CALL LIGHT WITHIN TO REACH, BED ALARM ON, SAFETY PRECAUTION MAINTAINED ALL THE TIME.
[2017-04-16 16:00] VITALS: BP 123/84
--- NOTE | 2017-04-16 16:44 | NUR ---
RN NOTES PATIENT STILL RESTING IN THE BED. NO ACUTE DISTRESS, NO RESPIRATORY DISTRESS, CALL LIGHT WITHIN TO REACH, SAFETY PRECAUTION MAINTAINED ALL THE KENDRA.
--- NOTE | 2017-04-16 19:00 | NUR ---
RN NOTES PATIENT IN THE BED, RESTING VANESSA OF THE BED, FAMILY NEXT TO THE BED, NO ACUTE DISTRESS, V/S TAKEN BP 148/ 67, P-128, MED COMPLIANT, NO C/O PAIN AT THIS TIME. MEDICATION WERE ADMINISTERED FOR PAIN EFFECTIVE.PATIENT POOR EATER, ENCOURAGED INCREASE FLUID INTAKE TOLERATED. PATIENT FAMILY REFUSED NEW PICC LINE TO BE PUT IN BECAUSE OF OLD ONE IS MALFUNCTION. DR MEIER AWARE OF. CALL JOHANSEN WITHIN TO REACH, BED ALARM ON. ENDORSED ONCOMING NURSE FOR CONTINUATION OF CARE.
--- NOTE | 2017-04-16 19:30 | NUR ---
RN NOTES RECEIVED PATIENT IN ASLEEP, AROUSABLE. AO X 3. ABLE TO MAKE NEEDS KNOWN. NO ACUTE DISTRESS NOTED. NO SIGNS OF PAIN NOTED. ON LOW BED WITH BILATERAL UPPER SIDE RAILS UP. SAFETY REMINDERS GIVEN. CALL LIGHT WITHIN EASY REACH. WILL CONTINUE TO MONITOR.
[2017-04-16 20:00] VITALS: BP 144/70
[2017-04-16 22:00] VITALS: BP 144/70
[2017-04-17] MEDS: HYDROCODONE/APAP 10/325MG 1 EA TABLET PO PRN ×4 (00:05→17:59)
[2017-04-17] MEDS: METOPROLOL TARTRATE 50 MG TABLET PO SCH ×2 (00:06→06:27)
--- NOTE | 2017-04-17 04:19 | NUR ---
RN NOTES PATIENT HAS NO IV ACCESS. FAMILY REFUSED TO HAVE IV LINE REINSERTED. ATIVAN CHANGED TO PO PER ORDER FROM JAMAAL Reveles NP; NOTED AND CARRIED OUT.
[2017-04-17] MEDS ORDERED: LORAZEPAM 1 MG TABLET ONE (04:27)
[2017-04-17] MEDS ORDERED: LORAZEPAM 1 MG TABLET PO PRN ×2 (04:30→10:30)
--- NOTE | 2017-04-17 06:59 | NUR ---
RN NOTES PATIENT ASLEEP, EASILY AROUSABLE. RESPIRATIONS EVEN. NO SIGNS OF PAIN NOTED. DUE MEDS GIVEN WITH NO ASE NOTED. NEEDS ATTENDED. SAFETY PRECAUTIONS AND COMFORT MEASURES IN PLACE. WILL GIVE REPORT TO DAY SHIFT FOR CONTINUITY OF CARE.
[2017-04-17 07:03] LABS: CALCIUM, SERUM 9.3 mg/dL (8.5-10.1); CARBON DIOXIDE 22 mmol/L (21-32); CHLORIDE 101 mmol/L (98-107); CREATININE 0.6 mg/dL (0.6-1.3); GLUCOSE 159 mg/dL (74-106); MAGNESIUM 1.7 mg/dL (1.8-2.4); POTASSIUM 3.2 mmol/L (3.5-5.1); SODIUM SERUM 135 mmol/L (136-145); UREA NITROGEN, BLOOD 9 mg/dL (7-18)
[2017-04-17 08:00] VITALS: BP 148/71
[2017-04-17] MEDS ORDERED: Magnesium 1GM/D5W 100ML PREMIX 100 ML IV SCH (08:00)
--- NOTE | 2017-04-17 08:00 | NUR ---
MS RN NOTES PATIENT IN BED RESTING NO SOB OR ACUTE DISTRESS NOTED. PATIENT ALERT, ORIENTED X3. PATIENT NOTED WITH NO IV MD AWARE, PATIENT REFUSES FOR PERIPHERAL IV. BED IN LOW LOCKED POSITION, CALL LIGHT WITHIN REACH WILL CONTINUE TO MONITION.
[2017-04-17] MEDS: hydrALAZINE HCL 50 MG TABLET PO SCH ×3 (09:00→17:00)
[2017-04-17] MEDS: AMLODIPINE BESYLATE 10 MG TABLET PO SCH (09:49)
[2017-04-17] MEDS: VALSARTAN 80 MG TABLET PO SCH ×2 (09:49→17:59)
[2017-04-17] MEDS: POTASSIUM CHLORIDE 20 MEQ TAB.PRT.SR PO SCH ×3 (09:50→10:59)
[2017-04-17] MEDS: CARVEDILOL 12.5 MG TABLET PO SCH ×2 (09:51→20:38)
[2017-04-17] MEDS: ASPIRIN EC 81 MG TABLET.DR PO SCH (09:52)
[2017-04-17] MEDS: LEVOFLOXACIN (500MG) 500 MG TABLET PO SCH (09:52)
[2017-04-17] MEDS: ISOSORBIDE DINITRATE (20MG) 20 MG TABLET PO SCH ×2 (09:52→18:00)
[2017-04-17] MEDS: SERTRALINE HCL 50 MG TABLET PO SCH (09:53)
[2017-04-17] MEDS: LISINOPRIL (10MG) 10 MG TABLET PO SCH ×2 (09:53→20:38)
[2017-04-17] MEDS: HYDROCHLOROTHIAZIDE 25 MG TABLET PO SCH (09:55)
[2017-04-17] MEDS ORDERED: MAGNESIUM OXIDE 400 MG TABLET PO ONE (10:00)
[2017-04-17] MEDS: TICAGRELOR 90 MG TABLET PO SCH ×2 (10:00→17:00)
--- NOTE | 2017-04-17 11:00 | NUR ---
MS RN NOTES PATIENT SEEN AND EVALUATED BY DR. FALL ORDERS NOTED AND CARRIED OUT.
[2017-04-17] MEDS: LIDOCAINE 5% (PATCH) 1 EA PATCH TP SCH (11:05)
[2017-04-17] MEDS ORDERED: POTASSIUM CHLORIDE 10 MEQ TABLET.SA PO ONE (12:00)
--- NOTE | 2017-04-17 13:00 | NUR ---
MS RN NOTES PATIENT NOTED WITH POOR APATITE DESPITE ENCOURAGEMENT OF ALL DIFFERENT FOOD TYPES. ANSELMO TEMPLE NP MADE AWARE ORDERS FOR BOOST TID. NOTED AND CARRIED OUT.
[2017-04-17 16:00] VITALS: BP 126/76
[2017-04-17] MEDS: BOOST GLUCOSE CONTROL VANILLA 237 ML BOX PO SCH (17:56)
--- NOTE | 2017-04-17 19:26 | NUR ---
MS RN NOTES PATIENT IN BED SLEEPING NO SOB OR ACUTE DISTRESS NOTED. ALL DUE MEDICATIONS ADMINISTERED. ALL NEEDS MET. WILL ENDORSE DAVID TO PM SHIFT.
--- NOTE | 2017-04-17 19:40 | NUR ---
MS RN NOTE: PATIENT RESTING IN BED, NO ACUTE DISTRESS NOTED. BREATHING EVEN AND UNLABORED, NO SOB NOTED. BED LOCKED AND IN LOWEST POSITION, CALL LIGHT IN REACH. WILL CONTINUE TO MONITOR.
[2017-04-17 20:00] VITALS: BP 162/79
--- NOTE | 2017-04-17 22:15 | NUR ---
MS RN NOTE: PATIENT ANXIOUS AND PATIENT SON AT BEDSIDE, REQUESTING FOR ATIVAN, ATIVAN 0.5MG ORAL GIVEN PER MD ORDER. WILL CONTINUE TO MONITOR.
[2017-04-17 22:40] VITALS: BP 120/59
[2017-04-18] MEDS: HYDROCODONE/APAP 10/325MG 1 EA TABLET PO PRN ×3 (04:13→20:51)
--- NOTE | 2017-04-18 04:20 | NUR ---
MS RN NOTE: PATIENT COMPLAINS OF BACK PAIN 02/19, NORCO 10/325MG ORAL GIVEN PER MD ORDER. WILL CONTINUE TO MONITOR.
--- NOTE | 2017-04-18 06:10 | NUR ---
MS RN NOTE: PATIENT RESTING IN BED, NO ACUTE DISTRESS NOTED. BREATHING EVEN AND UNLABORED, NO SOB NOTED. BED LOCKED AND IN LOWEST POSITION, CALL LIGHT IN REACH. WILL ENDORSE TO DAY NURSE TO CONTINUE WITH PLAN OF CARE.
--- NOTE | 2017-04-18 07:30 | NUR ---
MS RN AM NOTES PATIENT IN BED, AAO X3, FAROESE, ON 2LPM NC, NO SOB, NAD, RESPIRATION UNLABORED, PATIENT NOTED WITH NO IV MD AWARE, PATIENT REFUSES FOR PERIPHERAL IV PER MANUFACTURING FINANCE MANAGER. SOFT DIET, AMB WITH ASSIST, BED IN LOW LOCKED POSITION, CALL LIGHT WITHIN REACH WILL CONTINUE TO MONITION.
[2017-04-18 08:00] VITALS: BP 152/65
[2017-04-18 08:01] LABS: CALCIUM, SERUM 9.1 mg/dL (8.5-10.1); CARBON DIOXIDE 26 mmol/L (21-32); CHLORIDE 101 mmol/L (98-107); CREATININE 0.5 mg/dL (0.6-1.3); GLUCOSE 164 mg/dL (74-106); MAGNESIUM 1.7 mg/dL (1.8-2.4); POTASSIUM 3.4 mmol/L (3.5-5.1); SODIUM SERUM 136 mmol/L (136-145); UREA NITROGEN, BLOOD 9 mg/dL (7-18)
[2017-04-18] MEDS: VALSARTAN 80 MG TABLET PO SCH ×2 (08:50→16:38)
[2017-04-18] MEDS: AMLODIPINE BESYLATE 10 MG TABLET PO SCH (08:50)
[2017-04-18] MEDS: TICAGRELOR 90 MG TABLET PO SCH ×2 (08:50→17:14)
[2017-04-18] MEDS: ISOSORBIDE DINITRATE (20MG) 20 MG TABLET PO SCH ×2 (08:51→16:39)
[2017-04-18] MEDS: CARVEDILOL 12.5 MG TABLET PO SCH ×2 (08:51→21:53)
[2017-04-18] MEDS: ASPIRIN EC 81 MG TABLET.DR PO SCH (08:51)
[2017-04-18] MEDS: HYDROCHLOROTHIAZIDE 25 MG TABLET PO SCH (08:52)
[2017-04-18] MEDS: SERTRALINE HCL 50 MG TABLET PO SCH (08:52)
[2017-04-18] MEDS: LISINOPRIL (10MG) 10 MG TABLET PO SCH ×2 (08:52→21:52)
[2017-04-18] MEDS: LEVOFLOXACIN (500MG) 500 MG TABLET PO SCH (08:52)
[2017-04-18] MEDS: LIDOCAINE 5% (PATCH) 1 EA PATCH TP SCH (08:55)
[2017-04-18] MEDS: BOOST GLUCOSE CONTROL VANILLA 237 ML BOX PO SCH ×3 (08:55→17:14)
[2017-04-18] MEDS: ACETAMINOPHEN 325 MG TABLET PO PRN ×2 (08:55→19:27)
[2017-04-18] MEDS: hydrALAZINE HCL 50 MG TABLET PO SCH ×3 (08:58→16:38)
--- NOTE | 2017-04-18 09:30 | NUR ---
MS RN NOTES DUE MEDS GIVEN. STARTED IV ACCESS TO RFA G22, GOOD BLOOD RETURN.
[2017-04-18] MEDS: POTASSIUM CHLORIDE 20 MEQ TAB.PRT.SR PO SCH ×3 (09:48→12:15)
[2017-04-18] MEDS: Magnesium 1GM/D5W 100ML PREMIX 100 ML IV SCH ×2 (09:48→10:59)
--- NOTE | 2017-04-18 09:48 | NUR ---
MS RN NOTES MAGNESIUM IV BAG #1 STARTED
--- NOTE | 2017-04-18 10:59 | NUR ---
MS RN NOTES MAGNESIUM IV BAG #2 STARTED.
[2017-04-18] MEDS ORDERED: DRONABINOL 5 MG PO SCH (11:00)
[2017-04-18] MEDS: DRONABINOL (2.5 MG) 2.5 MG CAPSULE PO SCH (12:16)
[2017-04-18] MEDS: IV NS 0.9% 1,000 ML IV PRN ×2 (12:19→14:29)
--- NOTE | 2017-04-18 12:25 | NUR ---
MS RN NOTES 1225 - RAPID RESPONSE CALLED. CHANGE IN LEVEL OF CONSCIOUSNESS. BP 106/48 HR 97 O2 96 BS 191 MG/DL. NON RESPONSIVE, DIAPHORETIC. NS BOLUS STARTED 1226 - BP 114/46 HR 95 02 SAT 88% TO 97% HISTORY: PATIENT GIVEN NORCO AT 0853. LIDODERM PATCH 5%. APRESOLINE 100 MG 152/65. 1228 NEUROCHECK - NO RESPONSE. EYES OPEN. RAPID RESPONSE TEAM ON SITE. 1230 - CALLED MD 1235 - MD CHECKS ON PATIENT. BP 99/52 HR 13 O2 SAT 98% 1236 - ABG ORDERED. 1 L NS ORDERED OPEN WIDE. 1238 - ALL ORDERS CARRIED OUT. 1250 - PATIENT PLACED ON TELEMETRY PER NASIR BABIN. WILL CONT TO MONITOR.
--- NOTE | 2017-04-18 12:42 | NUR ---
TRANSIT DRIVER NOTES PLACED BACK AND TRANSFERRED TO TELEMETRY SR HR 100
[2017-04-18 12:47] LABS: ABG OXYGEN SATURATION 95.6 % (92.0-98.5); ABG PCO2 39.4 mmHg (35.0-45.0); ABG PH 7.455 (7.350-7.450); ABG PO2 84.3 mmHg (75.0-100.0); AaDO2 68.9 mmHg; COHb 0.2 % (0.5-1.5); O2Hb 94.5 % (94.0-97.0); SITE, ABG Right Radial
[2017-04-18 12:49] VITALS: BP 105/47
[2017-04-18] MEDS ORDERED: IV NS 0.9% 1,000 ML IV PRN (13:00)
[2017-04-18 13:13] LABS: BASOPHILS % (AUTO) 0.1 % (0.0-2.0); EOSINOPHILS % (AUTO) 0.1 % (0.0-6.0); HEMATOCRIT 23 % (33-45); LYMPHOCYTES # (AUTO) 0.4 /CMM (0.8-4.8); LYMPHOCYTES % (AUTO) 7.2 % (20.0-44.0); MEAN CORPUSCULAR HEMOGLOBIN 29 PG (26.0-33.0); MEAN CORPUSCULAR HGB CONC 33 g/dl (31.0-36.0); MEAN CORPUSCULAR VOLUME 87 fL (82-100); MONOCYTES # (AUTO) 0.4 /CMM (0.1-1.30); MONOCYTES % (AUTO) 8.1 % (2.0-12.0); NEUTROPHILS # (AUTO) 4.6 /CMM (1.8-8.9); NEUTROPHILS % (AUTO) 84.5 % (43.0-81.0); PLATELET COUNT (AUTO) 254 /CMM (150-450); RDW COEFFICIENT OF VARIATION 21.5 (11.5-15.0); RED BLOOD CELL COUNT(AUTO) 2.63 MIL/uL (4.0-5.2); WHITE BLOOD COUNT (AUTO) 5.4 K/uL (4.3-11.0)
[2017-04-18 13:22] LABS: HEMOGLOBIN 7.5 g/dL (11.5-14.8)
[2017-04-18 13:26] LABS: CALCIUM, SERUM 9.1 mg/dL (8.5-10.1); CARBON DIOXIDE 27 mmol/L (21-32); CHLORIDE 103 mmol/L (98-107); CREATININE 0.6 mg/dL (0.6-1.3); GLUCOSE 209 mg/dL (74-106); MAGNESIUM 2.1 mg/dL (1.8-2.4); PHOSPHORUS 2.5 mg/dL (2.5-4.9); POTASSIUM 3.4 mmol/L (3.5-5.1); SODIUM SERUM 137 mmol/L (136-145); UREA NITROGEN, BLOOD 10 mg/dL (7-18)
[2017-04-18] MEDS ORDERED: NA PHOS,M-B/NA PHOS,DI-BA 1 EA ENEMA RC PRN (13:30)
[2017-04-18 13:32] LABS: TROPONIN I 0.125 ng/mL (0.00-0.056)
--- NOTE | 2017-04-18 14:35 | NUR ---
MS RN NOTES ADMINISTERED FLEET ENEMA.
[2017-04-18 16:00] VITALS: BP 119/52
[2017-04-18 18:00] VITALS: BP 119/52
--- NOTE | 2017-04-18 18:24 | NUR ---
MATERIALS SCIENTIST CLOSING NOTES PATIENT IN BED, RESTING, AAO X3, SALVADOREAN, DAUGHTER AT BEDSIDE, ON 2LPM NC, NO SOB, NAD, RESPIRATION UNLABORED, TELEMETRY READS SR HR 100, NO SIGNS OF PAIN, RT FA G22 WITH NS AT 50 ML/HR INFUSING WELL, SITE CLEAR. SOFT DIET, BED REST FOR NOW, BED IN LOW LOCKED POSITION, CALL LIGHT WITHIN REACH, NO OTHER SIGNIFICANT CHANGE IN CONDITION. ALL NEEDS MET, PM CARE DONE. SAFETY MEASURES IN PLACE. WILL ENDORSE TO NEXT SHIFT FOR DAVID.
--- NOTE | 2017-04-18 19:35 | NUR ---
MS RN NOTE: PATIENT RESTING IN BED, NO ACUTE DISTRESS NOTED. IV TO RFA IN PLACE, INFUSING NS AT 50ML/HR. PATIENT COMPLAINS OF PAIN TO BACK, TYLENOL 650 MG ORAL GIVEN PER MD ORDER. BREATHING EVEN AND UNLABORED, NO SOB NOTED. BED LOCKED AND IN LOWEST POSITION, CALL LIGHT IN REACH. WILL CONTINUE TO MONITOR.
[2017-04-18 20:00] VITALS: BP 145/57
--- NOTE | 2017-04-18 20:45 | NUR ---
STILL CLEANER NOTE: PATIENT CONTINUE TO HAVE SEVERE BACK PAIN, PER FAMILY, PATIENT HAD CHRONIC BACK PAIN. CALLED SUPERVISOR ELECTRONICS ASSEMBLY MD, SPOKE TO JUAN ANTONIO VERA, INFORMED THAT NORCO WAS DISCONTINUED EARLIER TODAY DUE TO RAPID RESPONSE DUE TO AMS AND LOW BLOOD PRESSURE. RECEIVED ORDERS TO CONTINUE PREVIOUS ORDER OF NORCO 10/325MG 1 TAB ORAL EVERY 4 HOURS NEEDED. WILL CONTINUE TO MONITOR. Addendum: 04/18/17 at 2047 by HONG MORTON RN TELE READING SINUS TACH 110
--- NOTE | 2017-04-18 21:00 | NUR ---
E LEARNING DESIGNER NOTE: PATIENT COMPLAINS OF PAIN TO BACK 02/19, NORCO 10/325MG ORAL GIVEN PER MD ORDER. WILL CONTINUE TO MONITOR.
[2017-04-19] VITALS (7 sets, daily range): BP systolic 124–153; BP diastolic 60–71
[2017-04-19] MEDS: HYDROCODONE/APAP 10/325MG 1 EA TABLET PO PRN ×3 (04:05→18:57)
--- NOTE | 2017-04-19 04:15 | NUR ---
CERTIFIED WELDER NOTE: PATIENT COMPLAINS OF PAIN TO BACK 02/19, NORCO 10/325MG ORAL GIVEN PER MD ORDER. WILL CONTINUE TO MONITOR.
--- NOTE | 2017-04-19 06:05 | NUR ---
FIELD REIMBURSEMENT MANAGER NOTE: PATIENT RESTING IN BED, NO ACUTE DISTRESS NOTED. BREATHING EVEN AND UNLABORED, NO SOB NOTED. TELE READING SR TO SINUS TACHY 78-110. BED LOCKED AND IN LOWEST POSITION, CALL LIGHT IN REACH. WILL ENDORSE TO DAY NURSE TO CONTINUE WITH PLAN OF CARE.
--- NOTE | 2017-04-19 07:15 | NUR ---
HIGHWAY LANDSCAPE ARCHITECT OPENING NOTES RECEIVED PT FROM NIGHTSHIFT NURSE IN STABLE CONDITION. PT IS A/O X3. NO SOB OR SIGNS OF DISTRESS NOTED. BREATHING IS EVEN AND UNLABORED. PT DENIES ANY PAIN AT THIS TIME. PT IS SINUS TACH ON THE TELE MONITOR WITH A HR OF 107. IV NOTED ON RIGHT FOREARM 22G INFUSING NS @ 50ML/HR. PT IS TOLERATING INFUSION WELL. NO REDNESS OR SIGNS OF INFILTRATION NOTED. PT IS TOLERATING INFUSION WELL. BED IN LOW LOCKED POSITION, SIDE RAILS UP X3, CALL LIGHT WITHIN REACH, BED ALARM ON. WILL CONTINUE TO MONITOR
[2017-04-19] MEDS: HYDROCHLOROTHIAZIDE 25 MG TABLET PO SCH (09:00)
[2017-04-19] MEDS: VALSARTAN 80 MG TABLET PO SCH ×2 (09:00→17:00)
[2017-04-19] MEDS: CARVEDILOL 12.5 MG TABLET PO SCH ×2 (09:11→20:52)
[2017-04-19] MEDS: LEVOFLOXACIN (500MG) 500 MG TABLET PO SCH (09:11)
[2017-04-19] MEDS: BOOST GLUCOSE CONTROL VANILLA 237 ML BOX PO SCH ×3 (09:11→17:50)
[2017-04-19] MEDS: DRONABINOL (2.5 MG) 2.5 MG CAPSULE PO SCH (09:12)
[2017-04-19] MEDS: SERTRALINE HCL 50 MG TABLET PO SCH (09:12)
[2017-04-19] MEDS: LISINOPRIL (10MG) 10 MG TABLET PO SCH ×2 (09:12→20:52)
[2017-04-19] MEDS: ASPIRIN EC 81 MG TABLET.DR PO SCH (09:12)
[2017-04-19] MEDS: IV NS 0.9% 1,000 ML IV PRN (09:15)
[2017-04-19] MEDS: LIDOCAINE 5% (PATCH) 1 EA PATCH TP SCH (09:16)
[2017-04-19] MEDS: TICAGRELOR 90 MG TABLET PO SCH ×2 (09:16→17:00)
[2017-04-19] MEDS: hydrALAZINE HCL 50 MG TABLET PO SCH ×2 (12:34→17:00)
--- NOTE | 2017-04-19 13:52 | NUR ---
MS RN NOTES PT COMPLAINS OF A HEADACHE AND ASKED FOR NORCO. CURRENT BP IS 129/71 WITH A HR OF 114. WILL ADMINISTER PRN PAIN MEDICATION
[2017-04-19] MEDS: ACETAMINOPHEN 325 MG TABLET PO PRN ×2 (15:50→22:07)
--- NOTE | 2017-04-19 19:07 | NUR ---
TINSEL MACHINE OPERATOR CLOSING NOTES PT REMAINS IN STABLE CONDITION. VITALS HAVE REMAINED STABLE THROUGHOUT SHIT. ALL DUE MEDS GIVEN AND ORDERS CARRIED OUT ACCORDINGLY. PRN PAIN MEDICATION ADMINISTERED PT WAS COMPLAINING OF LOWER BACK PAIN RATED 9/10. ALL SAFETY MEASURES REMAIN IN PLACE. FAMILY AT BEDSIDE. WILL ENDORSE TO NIGHTSHIFT NURSE FOR DAVID
--- NOTE | 2017-04-19 20:00 | NUR ---
RN NOTES PATIENT IN BED, ALERT AND ORIENTED X3, [place] SPEAKING ONLY, CALM AT THIS TIME, ON 2LPM VIA NC, SPO2 97%, KEPT HOB ELEVATED, WITH CHRONIC LOWER BACK PAIN, WAS GIVEN NORCO EARLIER. RIGHT FA PERIPHERAL LINE IS PATENT AND INFUSING WELL, PATIENT REQUIRES HELP WITH ADLS DUE TO GENERALIZED WEAKNESS. KEPT SAFE AND COMFORTABLE, CALL LIGHT WITHIN REACH.
[2017-04-20] VITALS: BP 122/70
[2017-04-20] MEDS: HYDROCODONE/APAP 10/325MG 1 EA TABLET PO PRN ×3 (00:12→18:30)
[2017-04-20 04:00] VITALS: BP_SYST 104; BP_SYST 128; BP_DIAS 65; BP_DIAS 73
--- NOTE | 2017-04-20 06:33 | NUR ---
RN NOTES PATIENT RESTING COMFORTABLY IN BED, RESPIRATION EVEN AND UNLABORED, PROVIDED PAIN MEDICATION PROVIDED FOR CHRONIC LOWER BACK PAIN, ALL DUE MEDICATIONS GIVEN, CALL LIGHT WITHIN REACH.
[2017-04-20] MEDS: IV NS 0.9% 1,000 ML IV PRN (06:47)
[2017-04-20 07:54] LABS: BASOPHILS % (AUTO) 0.1 % (0.0-2.0); EOSINOPHILS % (AUTO) 0.1 % (0.0-6.0); HEMATOCRIT 26 % (33-45); HEMOGLOBIN 8.6 g/dL (11.5-14.8); LYMPHOCYTES # (AUTO) 0.6 /CMM (0.8-4.8); LYMPHOCYTES % (AUTO) 7.9 % (20.0-44.0); MEAN CORPUSCULAR HEMOGLOBIN 30 PG (26.0-33.0); MEAN CORPUSCULAR HGB CONC 34 g/dl (31.0-36.0); MEAN CORPUSCULAR VOLUME 88 fL (82-100); MONOCYTES # (AUTO) 0.5 /CMM (0.1-1.30); MONOCYTES % (AUTO) 7.2 % (2.0-12.0); NEUTROPHILS % (AUTO) 84.7 % (43.0-81.0); PLATELET COUNT (AUTO) 256 /CMM (150-450); RDW COEFFICIENT OF VARIATION 22.1 (11.5-15.0); RED BLOOD CELL COUNT(AUTO) 2.91 MIL/uL (4.0-5.2)
[2017-04-20 08:00] VITALS: BP 139/68
[2017-04-20 08:00] LABS: CALCIUM, SERUM 8.6 mg/dL (8.5-10.1); CARBON DIOXIDE 26 mmol/L (21-32); CHLORIDE 102 mmol/L (98-107); CREATININE 0.5 mg/dL (0.6-1.3); GLUCOSE 168 mg/dL (74-106); MAGNESIUM 1.6 mg/dL (1.8-2.4); PHOSPHORUS 2.9 mg/dL (2.5-4.9); POTASSIUM 2.9 mmol/L (3.5-5.1); SODIUM SERUM 139 mmol/L (136-145); UREA NITROGEN, BLOOD 7 mg/dL (7-18)
--- NOTE | 2017-04-20 08:00 | NUR ---
MS RN OPENING NOTES PT ASLEEP RIGHT LATERAL, EASILY AWOKEN AND A&0X3. PT WITH NC 4L/PM AND REPORTS SOB BUT NO OBVIOUS DISTRESS. LUNGS SOUNDS DIMINISHED AND 'WET' ON AUSCULTATION AND LIMITED CHEST RISE AND FALL NOTED. MD NOTIFIED. PT ADJUSTED TO POSITION OF COMFORT AND ENCOURAGED TO COUGH AND DEEP BREATHE. IVC G#22 IN RIGHT AC INTACT AND OPERATIONAL. PT BRIEFED ON PLAN OF CARE. BED IN LOWEST LOCKED POSITION WITH HANDRAILSX3 AND CALL JOHANSEN WITHIN REACH. NO OTHER CONCERNS OR COMPLAINTS AT THIS TIME.
[2017-04-20] MEDS: TICAGRELOR 90 MG TABLET PO SCH ×2 (09:00→17:00)
[2017-04-20] MEDS: LISINOPRIL (10MG) 10 MG TABLET PO SCH ×2 (09:00→20:34)
[2017-04-20] MEDS: LEVOFLOXACIN (500MG) 500 MG TABLET PO SCH (09:10)
[2017-04-20] MEDS: DRONABINOL (2.5 MG) 2.5 MG CAPSULE PO SCH (09:10)
[2017-04-20] MEDS: HYDROCHLOROTHIAZIDE 25 MG TABLET PO SCH (09:11)
[2017-04-20] MEDS: ASPIRIN EC 81 MG TABLET.DR PO SCH (09:11)
[2017-04-20] MEDS: POTASSIUM CHLORIDE 20 MEQ TAB.PRT.SR PO SCH ×5 (09:11→17:32)
[2017-04-20] MEDS: CARVEDILOL 12.5 MG TABLET PO SCH ×2 (09:12→20:33)
[2017-04-20] MEDS: AMLODIPINE BESYLATE 10 MG TABLET PO SCH (09:14)
[2017-04-20] MEDS: SERTRALINE HCL 50 MG TABLET PO SCH (09:14)
[2017-04-20] MEDS: LIDOCAINE 5% (PATCH) 1 EA PATCH TP SCH (09:15)
[2017-04-20] MEDS: Magnesium 1GM/D5W 100ML PREMIX 100 ML IV SCH ×2 (09:16→11:05)
[2017-04-20] MEDS: BOOST GLUCOSE CONTROL VANILLA 237 ML BOX PO SCH ×3 (09:16→17:32)
[2017-04-20] MEDS ORDERED: FUROSEMIDE 20 MG/2 ML VIAL IV ONE (10:00)
--- NOTE | 2017-04-20 10:00 | NUR ---
MS RN NOTES PATIENT SEEN AND EVALUATED BY NASIR HIGH PRESSURE KETTLE OPERATOR ORDERS NOTED AND CARRIED OUT.
[2017-04-20] MEDS ORDERED: hydrALAZINE HCL 50 MG TABLET PO PRN (13:00)
[2017-04-20 16:00] VITALS: BP 129/89
--- NOTE | 2017-04-20 19:14 | NUR ---
MS RN NOTES PATIENT IN BED RESTING NO SOB OR ACUTE DISTRESS NOTED. ALL DUE MEDICATIONS ADMINISTERED. ALL NEEDS MET. PERIPHERAL IV INTACT PATENT. WILL ENDORSE DAVID TO PM SHIFT.
--- NOTE | 2017-04-20 19:30 | NUR ---
MS RN NOTE: PATIENT RESTING IN BED, NO ACUTE DISTRESS NOTED. BREATHING EVEN AND UNLABORED, NO SOB NOTED. OXYGEN 2 LPM VIA NC IN PLACE. IV TO RFA IN PLACE. BED LOCKED AND IN LOWEST POSITION, CALL LIGHT IN REACH. WILL CONTINUE TO MONITOR.
[2017-04-20 20:00] VITALS: BP 112/46
[2017-04-20] MEDS: VALSARTAN 80 MG TABLET PO SCH (21:21)
[2017-04-21] MEDS: HYDROCODONE/APAP 10/325MG 1 EA TABLET PO PRN ×3 (01:04→16:52)
--- NOTE | 2017-04-21 01:15 | NUR ---
MS RN NOTE: PATIENT COMPLAINS OF PAIN TO BACK 02/19, NORCO 10/325MG ORAL GIVEN PER MD ORDER. WILL CONTINUE TO MONITOR.
[2017-04-21] MEDS: ACETAMINOPHEN 325 MG TABLET PO PRN ×2 (02:03→09:55)
--- NOTE | 2017-04-21 06:30 | NUR ---
MS RN NOTE: PATIENT RESTING IN BED, NO ACUTE DISTRESS NOTED. BREATHING EVEN AND UNLABORED, NO SOB NOTED. OXYGEN 2 LPM VIA NC IN PLACE. IV TO RFA IN PLACE. BED LOCKED AND IN LOWEST POSITION, CALL LIGHT IN REACH. WILL ENDORSE TO DAY NURSE TO CONTINUE WITH PLAN OF CARE.
--- NOTE | 2017-04-21 07:20 | NUR ---
RN NOTES PT IS SLEEPING IN BED, NO SIGNS OF DISTRESS NOTED. PT ON 2L O2 VIA NASAL CANNULA, RESPIRATIONS ARE EVEN AND UNLABORED. IV ON RFA INTACT AND PATENT. SAFETY MEASURES ARE IN PLACE, CALL LIGHT IS IN REACH. WILL CONTINUE TO MONITOR.
[2017-04-21 08:00] VITALS: BP 150/83
[2017-04-21] MEDS: BOOST GLUCOSE CONTROL VANILLA 237 ML BOX PO SCH ×3 (08:22→16:28)
[2017-04-21] MEDS: ASPIRIN EC 81 MG TABLET.DR PO SCH (08:22)
[2017-04-21] MEDS: LISINOPRIL (10MG) 10 MG TABLET PO SCH ×2 (08:22→21:49)
[2017-04-21] MEDS: LEVOFLOXACIN (500MG) 500 MG TABLET PO SCH (08:23)
[2017-04-21] MEDS: SERTRALINE HCL 50 MG TABLET PO SCH (08:23)
[2017-04-21] MEDS: DRONABINOL (2.5 MG) 2.5 MG CAPSULE PO SCH (08:23)
[2017-04-21] MEDS: HYDROCHLOROTHIAZIDE 25 MG TABLET PO SCH (08:29)
[2017-04-21] MEDS: LIDOCAINE 5% (PATCH) 1 EA PATCH TP SCH (08:31)
[2017-04-21] MEDS: TICAGRELOR 90 MG TABLET PO SCH ×2 (08:53→16:25)
[2017-04-21] MEDS: Magnesium 1GM/D5W 100ML PREMIX 100 ML IV SCH ×2 (08:53→10:25)
[2017-04-21] MEDS: POTASSIUM CHLORIDE 20 MEQ TAB.PRT.SR PO SCH ×5 (08:53→12:28)
[2017-04-21] MEDS: CARVEDILOL 12.5 MG TABLET PO SCH ×2 (09:00→21:49)
[2017-04-21] MEDS: AMLODIPINE BESYLATE 10 MG TABLET PO SCH (09:00)
[2017-04-21 12:16] LABS: BASOPHILS % (AUTO) 0.3 % (0.0-2.0); EOSINOPHILS % (AUTO) 0.2 % (0.0-6.0); HEMATOCRIT 26 % (33-45); HEMOGLOBIN 8.8 g/dL (11.5-14.8); LYMPHOCYTES # (AUTO) 0.6 /CMM (0.8-4.8); LYMPHOCYTES % (AUTO) 7.4 % (20.0-44.0); MEAN CORPUSCULAR HEMOGLOBIN 29 PG (26.0-33.0); MEAN CORPUSCULAR HGB CONC 34 g/dl (31.0-36.0); MEAN CORPUSCULAR VOLUME 87 fL (82-100); MONOCYTES # (AUTO) 0.4 /CMM (0.1-1.30); MONOCYTES % (AUTO) 5.6 % (2.0-12.0); NEUTROPHILS # (AUTO) 6.9 /CMM (1.8-8.9); NEUTROPHILS % (AUTO) 86.5 % (43.0-81.0); PLATELET COUNT (AUTO) 279 /CMM (150-450); RDW COEFFICIENT OF VARIATION 21.3 (11.5-15.0); RED BLOOD CELL COUNT(AUTO) 3.02 MIL/uL (4.0-5.2)
[2017-04-21 12:35] LABS: CALCIUM, SERUM 8.9 mg/dL (8.5-10.1); CARBON DIOXIDE 31 mmol/L (21-32); CHLORIDE 98 mmol/L (98-107); CREATININE 0.5 mg/dL (0.6-1.3); GLUCOSE 168 mg/dL (74-106); SODIUM SERUM 137 mmol/L (136-145); UREA NITROGEN, BLOOD 7 mg/dL (7-18)
[2017-04-21 12:55] LABS: POTASSIUM 2.8 mmol/L (3.5-5.1)
[2017-04-21 16:00] VITALS: BP 161/83
[2017-04-21] MEDS ORDERED: FUROSEMIDE 20 MG/2 ML VIAL IV ONE (18:00)
--- NOTE | 2017-04-21 18:37 | NUR ---
RN NOTES PT IS RESTING IN BED COMFORTABLY. IV ON RFA INTACT AND PATENT, SL. PT ON 4L O2 VIA NASAL CANNULA, O2 SAT 95%. ALL MEDS WERE GIVEN ORDERED, PT KEPT CLEAN AND DRY. NORCO LAST GIVEN @ 1700 FOR 8/10 PAIN. WAITING FOR PLAN TO HAVE THORACENTESIS DONE OR DC PATIENT, SON IS AWARE. SAFETY MEASURES ARE IN PLACE, CALL LIGHT IS IN REACH. WILL ENDORSE TO [employer] CONSULTANT RN FOR CONTINUITY OF CARE.
--- NOTE | 2017-04-21 19:35 | NUR ---
MS/RN NOTES RECEIVED PT. LYING IN BED. AWAKE, ALERT AND ORIENTED X 2-3 WITH PERIODS OF FORGETFULLNESS. PT. IS YI SPEAKING. BREATHING EVEN AND UNLABORED ON 4LPM O2 VIA NC. NO SOB, RESPIRATORY DISTRESS OR COMPLAINTS OF PAIN NOTED AT THIS TIME. PT. WITH RIGHT FOREARM 22 GAUGE PRESENT, PATENT AND INTACT. PT. WITH FAMILY MEMBERS PRESENT AT BEDSIDE. BED LOCKED AND IN LOWEST POSITION, SIDE RAILS UP X3, CALL LIGHT WITHIN REACH, WILL CONTINUE TO MONITOR.
[2017-04-21 20:00] VITALS: BP 156/73
[2017-04-21] MEDS: VALSARTAN 80 MG TABLET PO SCH (22:00)
--- NOTE | 2017-04-22 05:50 | NUR ---
TELE/RN NOTES RECEIVED PT. FROM ER VIA [facility]. PT. IS AWAKE, ALERT AND ORIENTED X4. BREATHING EVEN AND UNLABORED ON ROOM AIR. NO SOB, RESPIRATORY DISTRESS OR COMPLAINTS OF PAIN NOTED AT THIS TIME. ORIENTED PT. TO ROOM. PLACED EXTERNAL CONFERENCE INTERPRETER ON PT. CURRENT RHYTHM = SINUS TACH WITH BBB HR 110. PT. WITH LEFT AC 18 GAUGE PERIPHERAL IV PRESENT, PATENT AND INTACT ADMINISTERING TO PT. PROTONIX @ 51.99 ML/HR. BED LOCKED AND IN LOWEST POSITION, SIDE RAILS UP X3, CALL LIGHT WITHIN REACH. AWAITING ADMITTING ORDERS. WILL CONTINUE TO MONITOR. Addendum: 04/22/17 at 0645 by AZUCENA DOMINGUEZ RN DOCUMENTED ON WRONG PATIENT
[2017-04-22 06:30] LABS: BASOPHILS % (AUTO) 0.2 % (0.0-2.0); EOSINOPHILS % (AUTO) 0.1 % (0.0-6.0); HEMATOCRIT 27 % (33-45); HEMOGLOBIN 8.9 g/dL (11.5-14.8); LYMPHOCYTES # (AUTO) 0.6 /CMM (0.8-4.8); LYMPHOCYTES % (AUTO) 7.5 % (20.0-44.0); MEAN CORPUSCULAR HEMOGLOBIN 29 PG (26.0-33.0); MEAN CORPUSCULAR HGB CONC 33 g/dl (31.0-36.0); MEAN CORPUSCULAR VOLUME 87 fL (82-100); MONOCYTES # (AUTO) 0.5 /CMM (0.1-1.30); MONOCYTES % (AUTO) 6.4 % (2.0-12.0); NEUTROPHILS # (AUTO) 6.8 /CMM (1.8-8.9); NEUTROPHILS % (AUTO) 85.8 % (43.0-81.0); PLATELET COUNT (AUTO) 281 /CMM (150-450); RDW COEFFICIENT OF VARIATION 20.6 (11.5-15.0); RED BLOOD CELL COUNT(AUTO) 3.11 MIL/uL (4.0-5.2); WHITE BLOOD COUNT (AUTO) 7.9 K/uL (4.3-11.0)
--- NOTE | 2017-04-22 06:43 | NUR ---
MS/RN NOTES PT. IS LYING IN BED RESTING. BREATHING EVEN AND UNLABORED ON 4LPM O2 VIA NC. NO SOB, RESPIRATORY DISTRESS OR COMPLAINTS OF PAIN NOTED AT THIS TIME. PT. WITH RIGHT FOREARM 22 GAUGE PRESENT, PATENT AND INTACT. ALL PT. NEEDS MET. PT. ENCOURAGED AND ASSISTED TO TURN AND REPOSITION Q2H AND NEEDED. BED LOCKED AND IN LOWEST POSITION, SIDE RAILS UP X3, CALL LIGHT WITHIN REACH, WILL ENDORSE TO DAYSHIFT NURSE FOR CONTINUITY OF CARE.
[2017-04-22 06:57] LABS: CALCIUM, SERUM 8.8 mg/dL (8.5-10.1); CARBON DIOXIDE 32 mmol/L (21-32); CHLORIDE 95 mmol/L (98-107); CREATININE 0.5 mg/dL (0.6-1.3); GLUCOSE 173 mg/dL (74-106); MAGNESIUM 1.5 mg/dL (1.8-2.4); PHOSPHORUS 2.4 mg/dL (2.5-4.9); SODIUM SERUM 136 mmol/L (136-145); UREA NITROGEN, BLOOD 7 mg/dL (7-18)
--- NOTE | 2017-04-22 07:00 | NUR ---
RN NOTES: PATIENT RESTING IN BED. NONLABORED BREATHING NOTED ON 4 L NASAL CANNULA. IV SITE PATENT AND INTACT. PATIENT DENIES PAIN AT THE MOMENT. PATIENT UNDERSTANDS FIJIAN BUT SPEAKS KYRGYZ MAINLY. BED IN LOWEST LOCKED POSITION. CALL LIGHT WITHIN REACH. WILL CONTINUE TO MONITOR
[2017-04-22 08:00] VITALS: BP 156/73
[2017-04-22] MEDS: LEVOFLOXACIN (500MG) 500 MG TABLET PO SCH (08:46)
[2017-04-22] MEDS: BOOST GLUCOSE CONTROL VANILLA 237 ML BOX PO SCH ×3 (08:46→17:00)
[2017-04-22] MEDS: TICAGRELOR 90 MG TABLET PO SCH ×2 (09:00→17:00)
[2017-04-22] MEDS: HYDROCHLOROTHIAZIDE 25 MG TABLET PO SCH (09:53)
[2017-04-22] MEDS: CARVEDILOL 12.5 MG TABLET PO SCH (09:53)
[2017-04-22] MEDS: AMLODIPINE BESYLATE 10 MG TABLET PO SCH (09:54)
[2017-04-22] MEDS: LISINOPRIL (10MG) 10 MG TABLET PO SCH (09:54)
[2017-04-22] MEDS: ASPIRIN EC 81 MG TABLET.DR PO SCH (09:55)
[2017-04-22] MEDS: DRONABINOL (2.5 MG) 2.5 MG CAPSULE PO SCH (09:55)
[2017-04-22] MEDS: SERTRALINE HCL 50 MG TABLET PO SCH (09:58)
[2017-04-22] MEDS: LIDOCAINE 5% (PATCH) 1 EA PATCH TP SCH (10:45)
[2017-04-22] MEDS: POTASSIUM CHLORIDE 20 MEQ TAB.PRT.SR PO SCH ×5 (11:10→17:51)
[2017-04-22] MEDS: Magnesium 1GM/D5W 100ML PREMIX 100 ML IV SCH ×2 (11:15→15:23)
[2017-04-22] MEDS: HYDROCODONE/APAP 10/325MG 1 EA TABLET PO PRN ×2 (12:37→18:42)
[2017-04-22] MEDS ORDERED: POTA20TA83 PO (12:48)
[2017-04-22] MEDS ORDERED: VALS80TA2 PO (12:48)
[2017-04-22] MEDS ORDERED: LIDO30AD10 TP (12:48)
[2017-04-22] MEDS ORDERED: HYDR-3658 PO (12:48)
[2017-04-22] MEDS ORDERED: DRON2.5C3 PO (12:48)
[2017-04-22] MEDS ORDERED: CARV12.52 PO (12:48)
[2017-04-22] MEDS ORDERED: LISI10TA59 PO (12:48)
[2017-04-22] MEDS ORDERED: AMLO10TA2 PO (12:48)
[2017-04-22] MEDS ORDERED: HYDR25TA4 PO (12:48)
[2017-04-22] MEDS ORDERED: LEVO500T15 PO (12:48)
[2017-04-22] MEDS ORDERED: NEUTRA PHOS 1 POWD.PACKET PO ONE (13:30)
[2017-04-22 16:00] VITALS: BP 128/45
[2017-04-22] MEDS: ACETAMINOPHEN 325 MG TABLET PO PRN (16:34)
--- NOTE | 2017-04-22 18:30 | NUR ---
RN NOTES: PATIENT RESTING IN BED. NONLABORED BREATHING NOTED ON 4 L NASAL CANNULA. IV SITE PATENT AND INTACT. PATIENT DENIES PAIN AT THE MOMENT. PATIENT UNDERSTANDS LATVIAN BUT SPEAKS SAUDI ARABIAN MAINLY. BED IN LOWEST LOCKED POSITION. CALL LIGHT WITHIN REACH. PATIENT TURNED AND REPOSITIONED EVERY 2 HOURS AND NEEDED. OFFERED WARM PACKS FOR LOWERE BACK PAIN. PATIENT STATES THAT TYELNOL DID NOT HELP WITH PAIN
--- NOTE | 2017-04-22 18:43 | NUR ---
RN NOTES: SPOKE TO NASIR BABIN NP REGARDING PATIENT'S LOWER BACK PAIN. ORDERS TO GIVE NORCO 10 EVERY 6 HOURS. MEDICATION GIVEN ACCORDINGLY
--- NOTE | 2017-04-22 18:57 | NUR ---
RN NOTES CLOSING: PATIENT DISCHARGED HOME PER DRAY DRIVER ORDER. PATIENT STABLE. VS WNL. SPO2 AT 94-95% on room air. no sob noted. no signs of distress. IV line removed. Patient educated on exist care, educated to follow up with PHP within 1-2 weeks. patient and son educated with DRAY DRIVER perry's noted regarding pain management, following up with hospice, and with PHP regarding possible thoracentesis. valuables given to patient. prescriptions given. Patient and son verbalized understanding. Patient refused flu and pneumo vaccines. Benefits and risks discussed. Patient left via wheelchiar with [employer] principal to car. Son, Alonzo with patient. During shift, patient was refusing anticoagulant. DRAY DRIVER aware. Benefits and risk explained. Patient was refusing potassium as well. However, she agreed to take the medications towards the end of the shift
--- NOTE | 2017-04-22 19:00 | NUR ---
RN NOTES: 2 CAPSULES OF MARINOL WASTED, RECORDED WITH CHARGE NURSE
== END 2017-04-22 18:59 | disposition home health service (06) | DRG 438 ==
LOC: ER 06:03 → TELE 11:17 → MED 04-15 08:08 → TELE 04-18 21:28 → MED 04-20 12:22
PROVIDERS: ADMIT Internal Medicine; ATTEND Internal Medicine
DX: K85.90 Acute pancreatitis without necrosis or infection, unspecified (principal); I21.4 Non-ST elevation (NSTEMI) myocardial infarction; E44.0 Moderate protein-calorie malnutrition; J91.0 Malignant pleural effusion; B96.1 Klebsiella pneumoniae [K. pneumoniae] as the cause of diseases classified elsewhere; E83.42 Hypomagnesemia; I48.0 Paroxysmal atrial fibrillation; I11.0 Hypertensive heart disease with heart failure; I50.9 Heart failure, unspecified; E11.9 Type 2 diabetes mellitus without complications; N39.0 Urinary tract infection, site not specified; J98.11 Atelectasis; Z68.1 Body mass index [BMI] 19.9 or less, adult; D63.8 Anemia in other chronic diseases classified elsewhere; E87.6 Hypokalemia; I25.10 Atherosclerotic heart disease of native coronary artery without angina pectoris; Z92.21 Personal history of antineoplastic chemotherapy; Z90.12 Acquired absence of left breast and nipple; Z85.3 Personal history of malignant neoplasm of breast; Z79.899 Other long term (current) drug therapy; Z90.49 Acquired absence of other specified parts of digestive tract; R62.7 Adult failure to thrive; R53.1 Weakness; Z95.2 Presence of prosthetic heart valve
CPT/HCPCS: 36415; 36600; 70450-TC; 71010-TC; 73020; 80048-TC; 80053-TC; 80061-TC; 80076-TC; 81000-TC; 82272-TC; 82962-TC; 83605-TC; 83690-TC; 83735-TC; 84100-TC; 84484-TC; 85025-TC; 85730-TC; 87040-TC; 87081-TC; 87086-TC; 87186-TC; 93307-TC; 93880-TC; 97110-TC; 97530-TC; A4606; J1170; J1940; J2060; J2270; J2405; J3475; J3480; J3490; J7030; J7040; J7050; Q0167; Q0168; Q9967; Z7610